=== PATIENT | male | born 1945 | race Two or more races ===

== ENCOUNTER 2017-09-17 08:00 | Day surgery (SDC) | payer OTHER | END 2017-09-17 12:25 | disposition home or self-care (01) | LOC: AMB-ENDOS 08:00 | DX: K57.30 Diverticulosis of large intestine without perforation or abscess without bleeding (principal) ==

== ENCOUNTER 2019-01-06 06:16 | Day surgery (SDC) | payer OTHER | END 2019-01-06 09:50 | disposition home or self-care (01) | LOC: AMB-ENDOS 06:16 | DX: D12.0 Benign neoplasm of cecum (principal); D12.4 Benign neoplasm of descending colon; K57.30 Diverticulosis of large intestine without perforation or abscess without bleeding ==

== ENCOUNTER 2020-07-19 07:00 | Day surgery (SDC) | payer OTHER | END 2020-07-19 13:35 | disposition home or self-care (01) | LOC: AMB-ENDOS 07:00 | PROVIDERS: ATTEND Surgery | DX: D12.2 Benign neoplasm of ascending colon (principal); Z20.822 Contact with and (suspected) exposure to COVID-19 ==